=== PATIENT | male | born 1940 | race Caucasian/White ===

== ENCOUNTER 2023-06-26 12:29 | Emergency (ER) | payer MEDICARE ==
[~2023-06-26] VITALS: Ht 162.6 cm; Wt 79.4 kg
[2023-06-26 13:08] LABS: BASOPHILS % (AUTO) 0.5 % (0.0-2.0); EOSINOPHILS # (AUTO) 0.3 K/uL (0.0-0.7); EOSINOPHILS % (AUTO) 4.6 % (0.0-6.0); HEMATOCRIT 40 % (39-51); HEMOGLOBIN 13.2 g/dL (13.5-17.5); LYMPHOCYTES # (AUTO) 1.2 K/uL (0.8-4.8); LYMPHOCYTES % (AUTO) 15.4 % (20.0-44.0); MEAN CORPUSCULAR HEMOGLOBIN 31 PG (26.0-33.0); MEAN CORPUSCULAR HGB CONC 33 g/dl (31.0-36.0); MEAN CORPUSCULAR VOLUME 95 fL (80-96); MONOCYTES # (AUTO) 0.7 K/uL (0.1-1.30); MONOCYTES % (AUTO) 9.9 % (2.0-12.0); NEUTROPHILS # (AUTO) 5.2 K/uL (1.8-8.9); NEUTROPHILS % (AUTO) 69.6 % (43.0-81.0); PLATELET COUNT (AUTO) 345 K/uL (150-450); RED BLOOD CELL COUNT(AUTO) 4.24 MIL/uL (4.5-6.0); RED CELL DISTRIBUTION WIDTH 14.6 % (11.5-15.0); WHITE BLOOD COUNT (AUTO) 7.5 K/uL (4.3-11.0)
[2023-06-26 13:32] LABS: CALCIUM, SERUM 8.8 mg/dL (8.5-10.1); CARBON DIOXIDE 26 mmol/L (21-32); CHLORIDE 103 mmol/L (98-107); CREATININE 0.9 mg/dL (0.6-1.3); GLUCOSE 103 mg/dL (74-106); NT-PRO BNP 4967 pg/mL (0-125); POTASSIUM 4.4 mmol/L (3.5-5.1); SODIUM SERUM 138 mmol/L (136-145); UREA NITROGEN, BLOOD 24 mg/dL (7-18)
[2023-06-26] MEDS ORDERED: CT SWABBABLE VALVE TRANS SET 1 EA INFUS.SET MC ONE (16:54)
[2023-06-26] MEDS ORDERED: IOHEXOL-350 100 ML VIAL IV ONE (16:54)
[2023-06-26] MEDS ORDERED: IV NS 0.9% 250 ML IV ONE (16:55)
[2023-06-26 18:21] VITALS: BP 138/78; TEMP 98.2; O2SAT 98
== END 2023-06-26 18:22 | disposition home or self-care (01) ==
LOC: ER 12:33
DX: R07.89 Other chest pain (principal); R53.1 Weakness; I10 Essential (primary) hypertension; Z98.890 Other specified postprocedural states
CPT/HCPCS: 99285; 93970; 71275; 71045; 93005 ×2; 85025; 80048; 85378; 36415; 84484 ×3; 83880; J7050; Q9967